=== PATIENT | female | born 1990 | race Two or more races ===

== ENCOUNTER 2025-04-05 09:38 | Outpatient (CLI) | payer MEDICAID ==
[2025-04-05 11:39] LABS: Hematocrit 32.9 % (36.0-46.0); Hemoglobin 10.8 g/dL (12.2-16.2); Mean Corpuscular Hemoglobin 23.3 pg (28.0-32.0); Mean Corpuscular Volume 71.4 fL (80.0-100.0); Nucleated Red Blood Cells % 0.0 %
[2025-04-05 11:48] LABS: Thyroid Stimulating Hormone 2.3 uIU/mL (0.55-4.78)
[2025-04-05 11:58] LABS: Beta HCG, Quantitative 0.1 mIU/mL (1.5-4.2)
[2025-04-05 12:17] LABS: Alanine Aminotransferase 16 U/L (7-40); Alkaline Phosphatase 94 U/L (46-116); Anion Gap 9 (5-15); BUN/Creatinine Ratio 15.0 (10.0-20.0); Blood Urea Nitrogen 9 mg/dL (9-23); Carbon Dioxide 25 mmol/L (20-31); Chloride 107 mmol/L (98-107); Glucose 83 mg/dL (74-106); Potassium 4.0 mmol/L (3.5-5.1); Sodium 141 mmol/L (136-145); Total Protein 7.0 g/dL (5.7-8.2)
[2025-04-05 12:18] LABS: Albumin 4.1 g/dL (3.2-4.8)
[2025-04-05 12:21] LABS: Follicle Stimulating Hormone 3.42 IU/L (SEE BELOW)
[2025-04-05 12:22] LABS: Free T4 (Free Thyroxine) 1.02 ng/dL (0.89-1.76)
[2025-04-05 12:33] LABS: Bilirubin, Total 0.3 mg/dL (0.2-1.0); Calcium 8.4 mg/dL (8.7-10.4)
== END 2025-04-05 17:00 | disposition home or self-care (01) ==
LOC: LAB 09:38
DX: N92.0 Excessive and frequent menstruation with regular cycle (principal); R10.9 Unspecified abdominal pain
CPT/HCPCS: 36415; 80053; 82626; 82670; 83001; 83002; 83036; 84146; 84270; 84402; 84403; 84439; 84443; 84702; 85025